=== PATIENT | female | born 1930 | race Caucasian/White ===

== ENCOUNTER 2019-03-13 12:55 | Inpatient (IN) | payer MEDICARE, BC ==
[~2019-03-13] VITALS: Ht 165.1 cm; Wt 74.8 kg
[2019-03-13] MEDS ORDERED: PANT40TA4 PO (13:47)
[2019-03-13] MEDS ORDERED: IRBE1TAB33 PO (13:47)
[2019-03-13] MEDS ORDERED: SIMV-49 PO (13:47)
--- NOTE | 2019-03-13 13:59 | NUR ---
Dr Girard at the bedside for MSE.
[2019-03-13 14:42] LABS: BASOPHILS % (AUTO) 0.6 % (0.0-2.0); EOSINOPHILS % (AUTO) 0.7 % (0.0-7.0); HEMATOCRIT 42.9 % (31.2-41.9); HEMOGLOBIN 14.6 g/dL (10.9-14.3); LYMPHOCYTES # (AUTO) 1.5 K/uL (20.0-40.0); LYMPHOCYTES % (AUTO) 22.3 % (20.5-51.5); MEAN CORPUSCULAR HEMOGLOBIN 30.7 uug (24.7-32.8); MEAN CORPUSCULAR HGB CONC 34 g/dL (32.3-35.6); MEAN CORPUSCULAR VOLUME 90.1 fL (75.5-95.3); MONOCYTES # (AUTO) 0.5 K/uL (2.0-10.0); NEUTROPHILS # (AUTO) 4.6 K/uL (1.8-8.9); NEUTROPHILS % (AUTO) 69.4 % (38.5-71.5); PLATELET COUNT (AUTO) 174 K/uL (179-408); RED BLOOD CELL COUNT(AUTO) 4.77 MIL/uL (3.63-4.92); WHITE BLOOD COUNT (AUTO) 6.6 K/uL (3.8-11.8)
[2019-03-13 14:53] LABS: CARBON DIOXIDE 28 mmol/L (21-32); CHLORIDE 92 mmol/L (98-107); CREATININE 1.7 mg/dL (0.6-1.3); GLUCOSE 102 mg/dL (74-106); UREA NITROGEN, BLOOD 31 mg/dL (7-18)
[2019-03-13 15:05] LABS: ALANINE AMINOTRANSFERASE 18 U/L (14-59); ALKALINE PHOSPHATASE 77 U/L (50-136); ASPARTATE AMINOTRANSFERASE 20 U/L (15-37); BILIRUBIN,DIRECT 0.3 mg/dL (0.0-0.2); BILIRUBIN,TOTAL 1.1 mg/dL (0.2-1.0); TOTAL PROTEIN, SERUM 6.5 g/dL (6.4-8.2)
[2019-03-13 16:51] LABS: *BILIRUBIN,URIN NEGATIVE (NEGATIVE); *BLOOD, URINE 2+ (NEGATIVE); *CLARITY,URINE CLOUDY (CLEAR); *COLOR,URINE YELLOW (YELLOW); *KETONES,URINE NEGATIVE (NEGATIVE); LEUKOCYTE ESTERASE ,URINE 3+ (NEGATIVE); NITRITE, URINE NEGATIVE (NEGATIVE); UGLUCOSE NEGATIVE (NEGATIVE)
[2019-03-13 17:03] LABS: BACTERIA,URINE MANY /HPF (NONE SEEN); SQUAMOUS EPITHELIAL CELL,UR MODERATE /HPF (NONE SEEN); WBC,URINE 50-80 /HPF (0-3)
[2019-03-13] MEDS ORDERED: CEFTRIAXONE 1 G in IV DEXTROSE 5% 50 ML IV ONE (17:15)
[2019-03-13] MEDS ORDERED: CEFTRIAXONE /D5W 50ML IVPB **ER PYXIS IV ONE (17:17)
[2019-03-13 18:05] VITALS: BP 150/63
[2019-03-13] MEDS ORDERED: IV NS 1000 ML 1,000 ML IV PRN (19:00)
[2019-03-13] MEDS ORDERED: ONDANSETRON 4 MG/2 ML VIAL IV PRN (19:15)
[2019-03-13 19:37] VITALS: BP 126/75
[2019-03-13] MEDS: SIMVASTATIN 40 MG TABLET PO SCH (21:04)
[2019-03-13] MEDS: Z GUARD REMEDY PASTE 57 GM TUBE TOP SCH (21:27)
[2019-03-14] VITALS: BP 131/74
[2019-03-14 04:00] VITALS: BP 130/70
[2019-03-14] MEDS: PANTOPRAZOLE SODIUM 40 MG TABLET.DR PO SCH (06:03)
--- NOTE | 2019-03-14 06:16 | NUR ---
Patient slept well last night. Had difficulty urinating in the diaper at the start of the shift but noted good urine output this morning in diaper. No other complaints were made. Afebrile throughout the shift and no recurrence of nausea and vomiting. Attended all needs. Ensured safety and comfort. Will endorse accordingly.
[2019-03-14 07:15] LABS: ALANINE AMINOTRANSFERASE 12 U/L (14-59); ALKALINE PHOSPHATASE 67 U/L (50-136); ASPARTATE AMINOTRANSFERASE 19 U/L (15-37); CARBON DIOXIDE 30 mmol/L (21-32); CHLORIDE 95 mmol/L (98-107); CREATININE 1.6 mg/dL (0.6-1.3); GLUCOSE 83 mg/dL (74-106); POTASSIUM 3.2 mmol/L (3.5-5.1); TOTAL PROTEIN, SERUM 5.7 g/dL (6.4-8.2); UREA NITROGEN, BLOOD 27 mg/dL (7-18)
[2019-03-14 07:16] LABS: BASOPHILS % (AUTO) 0.7 % (0.0-2.0); EOSINOPHILS # (AUTO) 0.1 K/uL (0.0-0.7); HEMATOCRIT 39.6 % (31.2-41.9); HEMOGLOBIN 13.7 g/dL (10.9-14.3); LYMPHOCYTES # (AUTO) 2.1 K/uL (20.0-40.0); LYMPHOCYTES % (AUTO) 33.7 % (20.5-51.5); MEAN CORPUSCULAR HEMOGLOBIN 30.9 uug (24.7-32.8); MEAN CORPUSCULAR HGB CONC 35 g/dL (32.3-35.6); MEAN CORPUSCULAR VOLUME 89.5 fL (75.5-95.3); MONOCYTES # (AUTO) 0.5 K/uL (2.0-10.0); MONOCYTES % (AUTO) 7.7 % (0.0-11.0); NEUTROPHILS # (AUTO) 3.5 K/uL (1.8-8.9); NEUTROPHILS % (AUTO) 55.9 % (38.5-71.5); PLATELET COUNT (AUTO) 161 K/uL (179-408); RED BLOOD CELL COUNT(AUTO) 4.43 MIL/uL (3.63-4.92); WHITE BLOOD COUNT (AUTO) 6.3 K/uL (3.8-11.8)
--- NOTE | 2019-03-14 08:00 | NUR ---
AWAKE ALERT AND VERBALLY RESPONSIVE, NO SS OF PAIN OR DISTRESS. SR/SB ON MONITOR
[2019-03-14] MEDS: HYDROCHLOROTHIAZIDE 12.5 MG CAPSULE PO SCH (08:29)
[2019-03-14] MEDS: LOSARTAN POTASSIUM 50 MG TABLET PO SCH (08:29)
[2019-03-14] MEDS: Z GUARD REMEDY PASTE 57 GM TUBE TOP SCH ×2 (08:30→20:04)
[2019-03-14] MEDS ORDERED: HOME MED MISCELLANEOUS PO SCH (09:00)
--- NOTE | 2019-03-14 10:03 | NUR ---
CONTINUE CURRENT TX PLAN IVF AT 50 ML/HR. NO ONGOING VOMITING NOTED TOLERATED CLEAR LIQUID FOR BREAKFAST VERY WELL
[2019-03-14 11:31] VITALS: BP 97/52
--- NOTE | 2019-03-14 12:10 | NUR ---
WOUND CARE CONSULT: PT PRESENTS WITH BREASTFOLD RASH AND WOUND TO RT LATERAL FOOT, PRESENT ON ADMISSION. RECOMMEND DPM CONSULT. DR OSULLIVAN AWARE OF CONSULT REQUEST. RECOMMENDATIONS MADE FOR SKIN PROTECTION AND CARE OF BREASTFOLD RASH. DISCUSSED WITH NURSING STAFF. WILL SEE PRN. DONIS IN AGREEMENT WITH PLAN OF CARE Addendum: 03/14/19 at 1211 by JOE RAPHAEL RN Amended: Links added.
[2019-03-14] MEDS: POTASSIUM CHLORIDE 40 MEQ in IV NS 1000 ML 1,000 ML IV PRN (12:27)
[2019-03-14] MEDS ORDERED: POTASSIUM CHLORIDE 10 MEQ TAB.PRT.SR PO ONE (15:15)
[2019-03-14 15:52] VITALS: BP 119/62
[2019-03-14] MEDS: CLOTRIMAZOLE 1% CREAM 30 GM TUBE TOP SCH (16:22)
[2019-03-14] MEDS ORDERED: CEFTRIAXONE 1 G in IV DEXTROSE 5% 50 ML IV SCH (17:00)
--- NOTE | 2019-03-14 19:20 | NUR ---
Received patient lying in bed. AAOx3, with periods of forgetfulness and some confusion. Pleasant and calm. In no acute distress. Denies any pain or discomfort at this time. Sinus opal on tele at 57/min. IV site on right FA intact and patent. IVF infusing. Daughter at bedside. Needs assessed and attended to. Safety measure initiated and call moon within reached.
[2019-03-14] MEDS: SIMVASTATIN 40 MG TABLET PO SCH (20:03)
[2019-03-14 20:05] VITALS: BP 120/67
[2019-03-15 00:10] VITALS: BP 111/57
[2019-03-15] MEDS: POTASSIUM CHLORIDE 40 MEQ in IV NS 1000 ML 1,000 ML IV PRN ×2 (02:23→17:21)
[2019-03-15 04:00] VITALS: BP 149/77
[2019-03-15] MEDS: PANTOPRAZOLE SODIUM 40 MG TABLET.DR PO SCH (06:07)
--- NOTE | 2019-03-15 06:22 | NUR ---
AAOx3, but forgetful and with periods of confusion. Pleasant and calm. In no acute distress. Denies any pain or discomfort at this time. Sinus opal with AV block on tele at 56/min. IV site on right FA intact and patent. IVF infusing. Safety measure maintained and call moon within reached.
[2019-03-15 06:48] LABS: BASOPHILS # (AUTO) 0.1 K/uL (0.0-8.0); EOSINOPHILS # (AUTO) 0.2 K/uL (0.0-0.7); EOSINOPHILS % (AUTO) 2.6 % (0.0-7.0); HEMATOCRIT 39.1 % (31.2-41.9); HEMOGLOBIN 13.4 g/dL (10.9-14.3); LYMPHOCYTES # (AUTO) 2.1 K/uL (20.0-40.0); LYMPHOCYTES % (AUTO) 33.5 % (20.5-51.5); MEAN CORPUSCULAR HEMOGLOBIN 30.1 uug (24.7-32.8); MEAN CORPUSCULAR HGB CONC 34 g/dL (32.3-35.6); MEAN CORPUSCULAR VOLUME 88.1 fL (75.5-95.3); MONOCYTES # (AUTO) 0.6 K/uL (2.0-10.0); MONOCYTES % (AUTO) 9.2 % (0.0-11.0); NEUTROPHILS # (AUTO) 3.4 K/uL (1.8-8.9); NEUTROPHILS % (AUTO) 53.7 % (38.5-71.5); PLATELET COUNT (AUTO) 168 K/uL (179-408); RED BLOOD CELL COUNT(AUTO) 4.44 MIL/uL (3.63-4.92); WHITE BLOOD COUNT (AUTO) 6.3 K/uL (3.8-11.8)
[2019-03-15 07:01] LABS: CARBON DIOXIDE 27 mmol/L (21-32); CHLORIDE 101 mmol/L (98-107); CREATININE 1.5 mg/dL (0.6-1.3); GLUCOSE 81 mg/dL (74-106); MAGNESIUM 1.7 mg/dL (1.8-2.4); PHOSPHOROUS 2.5 mg/dL (2.5-4.9); POTASSIUM 4.1 mmol/L (3.5-5.1); UREA NITROGEN, BLOOD 21 mg/dL (7-18)
--- NOTE | 2019-03-15 08:00 | NUR ---
AWAKE ALERT AND VERBALLY RESPONSIVE, FORGETFUL, [place]. NO SS OF PAIN OR DISTRESS SR ON MONITOR
[2019-03-15] MEDS: HYDROCHLOROTHIAZIDE 12.5 MG CAPSULE PO SCH (09:03)
[2019-03-15] MEDS: LOSARTAN POTASSIUM 50 MG TABLET PO SCH (09:04)
[2019-03-15] MEDS: CLOTRIMAZOLE 1% CREAM 30 GM TUBE TOP SCH ×2 (09:05→17:22)
[2019-03-15] MEDS: Z GUARD REMEDY PASTE 57 GM TUBE TOP SCH ×2 (09:05→20:18)
[2019-03-15] MEDS: MUPIROCIN 2% OINT 22 GM TUBE TP SCH (09:06)
--- NOTE | 2019-03-15 10:25 | NUR ---
SEEN BY PHYSICAL THERAPIST FOR EVAL, SAT ON CHAIR AND FAIRLY TOLERATED
[2019-03-15] MEDS ORDERED: MAGNESIUM SULFATE/D5W 100 ML IV SCH (11:00)
[2019-03-15 11:02] VITALS: BP 114/57
[2019-03-15] MEDS: CEphaleXIN 500 MG CAPSULE PO SCH ×2 (14:22→20:17)
[2019-03-15 15:02] VITALS: BP 102/59
--- NOTE | 2019-03-15 19:20 | NUR ---
Received patient lying in bed. AAOx3, with periods of forgetfulness. In no acute distress. Denies any pain or discomfort. NSR on tele with 1st degree AV block and occasional PAC's at 66/min. IV site on right FA intact and patent. IVF infusing. Safety measure initiated and call moon within reached.
[2019-03-15 20:00] VITALS: BP 128/64
[2019-03-15] MEDS: SIMVASTATIN 40 MG TABLET PO SCH (20:17)
[2019-03-16] VITALS: BP 140/70
[2019-03-16 04:00] VITALS: BP 138/90
[2019-03-16] MEDS: POTASSIUM CHLORIDE 40 MEQ in IV NS 1000 ML 1,000 ML IV PRN (06:10)
[2019-03-16] MEDS: PANTOPRAZOLE SODIUM 40 MG TABLET.DR PO SCH (06:10)
--- NOTE | 2019-03-16 06:22 | NUR ---
AAOx3, but forgetful and with periods of confusion early AM. Gets anxious but able to redirect and calm patient down. In no acute distress. No complain of pain or SOB. NSR with AV block and rare PAC on tele at 66/min. IV site on right FA intact and patent. IVF infusing. No adverse effect noted from PO ABX. Safety measure maintained and call moon within reached.
[2019-03-16 07:11] LABS: CREATININE 1.3 mg/dL (0.6-1.3); MAGNESIUM 1.8 mg/dL (1.8-2.4); POTASSIUM 5.2 mmol/L (3.5-5.1)
[2019-03-16] MEDS: LOSARTAN POTASSIUM 50 MG TABLET PO SCH (11:35)
[2019-03-16] MEDS: CEphaleXIN 500 MG CAPSULE PO SCH (11:36)
[2019-03-16] MEDS: HYDROCHLOROTHIAZIDE 12.5 MG CAPSULE PO SCH (11:36)
[2019-03-16] MEDS: CLOTRIMAZOLE 1% CREAM 30 GM TUBE TOP SCH ×2 (11:38→17:21)
[2019-03-16] MEDS: MUPIROCIN 2% OINT 22 GM TUBE TP SCH (11:39)
[2019-03-16] MEDS: Z GUARD REMEDY PASTE 57 GM TUBE TOP SCH (11:39)
[2019-03-16 12:06] VITALS: BP 144/69
[2019-03-16] MEDS ORDERED: IRBE300T19 PO (13:57)
[2019-03-16] MEDS ORDERED: CEPH500C2 PO (13:57)
[2019-03-16 16:05] VITALS: BP 119/68
--- NOTE | 2019-03-16 17:00 | NUR ---
Patient discharged at this time with family members accompanying. Presents in no distress or discomfort with preparation for leaving is in progress. Family member showing full concern of care as multiple questions are arise about stay. Received information accordingly. Patient had no nausea or vomiting during this shift. Care and comfort maintained. Uneventful shift.
== END 2019-03-16 17:00 | disposition home or self-care (01) | DRG 673 ==
LOC: ER 12:55 → EDBD 12:55 → TELE3 17:33
PROVIDERS: ADMIT Internal Medicine; ATTEND Internal Medicine Nephrology
PROC: 0JBQ0ZZ Excision of Right Foot Subcutaneous Tissue and Fascia, Open Approach (ICD-10-PCS; principal; 2019-03-14)
DX: N17.0 Acute kidney failure with tubular necrosis (principal); G92 Toxic encephalopathy; N39.0 Urinary tract infection, site not specified; E87.1 Hypo-osmolality and hyponatremia; L03.115 Cellulitis of right lower limb; I44.0 Atrioventricular block, first degree; B96.20 Unspecified Escherichia coli [E. coli] as the cause of diseases classified elsewhere; K52.9 Noninfective gastroenteritis and colitis, unspecified; K21.9 Gastro-esophageal reflux disease without esophagitis; Z96.653 Presence of artificial knee joint, bilateral; Z96.641 Presence of right artificial hip joint; M20.42 Other hammer toe(s) (acquired), left foot; M20.41 Other hammer toe(s) (acquired), right foot; L97.519 Non-pressure chronic ulcer of other part of right foot with unspecified severity; S91.301S Unspecified open wound, right foot, sequela; W19.XXXS Unspecified fall, sequela
CPT/HCPCS: 36415; 70030-TC; 71045; 73630; 83605; 83735; 84100; 84443; 85025; 85730; 87040; 87077; 87086; 93005; A4663; G0378; J0696; J2405; J3475; J3480; J7030; J7060